=== PATIENT | female | born 1945 | race Caucasian/White ===

== ENCOUNTER 2017-06-03 16:57 | Emergency (ER) | payer OTHER ==
[~2017-06-03] VITALS: Ht 162.6 cm; Wt 65.8 kg
[~2017-06-03 16:57] MED LIST: ALB5IS NEB; ASPI81TA27 PO; BUDE0.5S IN; CEPH-37 PO; CHOL20007 PO; IPR002IS NEB; PRE5T PO; RANI150C11 PO
[2017-06-03 17:25] VITALS: BP 125/67
[2017-06-03] MEDS ORDERED: ONDANSETRON ODT 4 MG TAB PO ONE (20:00)
[2017-06-03] MEDS ORDERED: KETOROLAC TROMETH 60MG/2ML VIAL IM ONE (20:00)
== END 2017-06-03 20:48 | disposition home or self-care (01) ==
LOC: ER 17:02
DX: S40.011A Contusion of right shoulder, initial encounter (principal); W01.0XXA Fall on same level from slipping, tripping and stumbling without subsequent striking against object, initial encounter; Y93.89 Activity, other specified; Y92.89 Other specified places as the place of occurrence of the external cause; Y99.8 Other external cause status
CPT/HCPCS: 73060; 96372; 99284; J1885; Q0162

== ENCOUNTER 2018-08-27 19:08 | Emergency (ER) | payer OTHER ==
[~2018-08-27] VITALS: Ht 160 cm; Wt 68.0 kg
[2018-08-27 19:34] VITALS: BP 145/72
== END 2018-08-27 23:19 | disposition left against medical advice (07) ==
LOC: ER 19:08
DX: B86 Scabies (principal); Z53.21 Procedure and treatment not carried out due to patient leaving prior to being seen by health care provider

== ENCOUNTER 2020-08-03 13:46 | Emergency (ER) | payer OTHER ==
[~2020-08-03] VITALS: Ht 167.6 cm; Wt 63.5 kg
[~2020-08-03 13:46] MED LIST changes: +ASPI-543 PO; -ASPI81TA27 PO
[2020-08-03] MEDS: cefTRIAXone SOD 1,000 MG VL IM ONE (14:30)
[2020-08-03 14:52] VITALS: BP 140/61
== END 2020-08-03 15:00 | disposition home or self-care (01) ==
LOC: ER 13:46
DX: R21 Rash and other nonspecific skin eruption (principal); J44.9 Chronic obstructive pulmonary disease, unspecified; Z87.442 Personal history of urinary calculi; Z86.73 Personal history of transient ischemic attack (TIA), and cerebral infarction without residual deficits; Z88.6 Allergy status to analgesic agent
CPT/HCPCS: 96372; 99283; J0696

== ENCOUNTER 2020-08-16 11:07 | Emergency (ER) | payer OTHER ==
[~2020-08-16] VITALS: Ht 162.6 cm; Wt 67.1 kg
[2020-08-16 12:17] VITALS: BP 151/60
== END 2020-08-16 12:34 | disposition home or self-care (01) ==
LOC: ER 11:07
DX: R21 Rash and other nonspecific skin eruption (principal); L08.89 Other specified local infections of the skin and subcutaneous tissue; L29.9 Pruritus, unspecified; Z79.899 Other long term (current) drug therapy; Z88.5 Allergy status to narcotic agent; Z88.8 Allergy status to other drugs, medicaments and biological substances